=== PATIENT | female | born 1980 | race Caucasian/White ===

== ENCOUNTER 2018-02-19 12:44 | Emergency (ER) | payer SELFPAY ==
[~2018-02-19] VITALS: Ht 157.5 cm; Wt 67.6 kg
[~2018-02-19 12:44] MED LIST: [UNRECOGNIZED DRUG - CODE]
[2018-02-19 12:53] VITALS: BP 129/65
--- NOTE | 2018-02-19 13:00 | NUR ---
gave report to Ambar CARMICHAEL
--- NOTE | 2018-02-19 13:06 | NUR ---
37 yo f bib self w/ c/o vaginal bleeding x 3 days. Patient reports bleeding is spotting, "a large clot/mass came out" this am. Pt states she is 6 weeks , LMP 12/14/17, [id number]. Patient also reports of 5/10 mid lower back pain. a&o x 4. gcs15. cms intact. er md Grant notified of pt status. pt needs met. safety precautions in place. will continue to monitor.
--- NOTE | 2018-02-19 14:00 | NUR ---
pt resting comfortably in [facility] at this time. vss. will continue to monitor.
[2018-02-19 14:18] LABS: BASOPHILS % (AUTO) 0.4 % (0.0-2.0); EOSINOPHILS # (AUTO) 0.1 K/uL (0-0.4); HEMOGLOBIN 11.3 g/dL (12.0-16.0); LYMPHOCYTES # (AUTO) 2.1 K/uL (2.5-16.5); LYMPHOCYTES % (AUTO) 18.2 % (20.5-51.1); MEAN CORPUSCULAR HEMOGLOBIN 28 pg (27-31); MEAN CORPUSCULAR HGB CONC 32 g/dL (33-37); MEAN CORPUSCULAR VOLUME 86.3 fL (80-94); MONOCYTES # (AUTO) 0.7 K/uL (0.8-1.0); MONOCYTES % (AUTO) 6.3 % (1.7-9.3); NEUTROPHILS # (AUTO) 8.4 K/uL (1.8-7.7); NEUTROPHILS % (AUTO) 74.1 % (42.2-75.2); PLATELET COUNT (AUTO) 310 K/uL (140-450); RED BLOOD CELL COUNT(AUTO) 4.06 MIL/uL (4.20-5.40); RED CELL DISTRIBUTION WIDTH 14.2 % (11.6-13.7); WHITE BLOOD COUNT (AUTO) 11.3 K/uL (4.8-10.8)
[2018-02-19 14:27] LABS: APPEARANCE,URINE CLEAR (CLEAR); BILIRUBIN,URINE NEGATIVE (NEGATIVE); BLOOD, URINE 2+ (NEGATIVE); LEUKOCYTE ESTERASE ,URINE NEGATIVE (NEGATIVE); NITRITE, URINE NEGATIVE (NEGATIVE); PH,URINE 6.5 (5.0-9.0); UGLUCOSE NEGATIVE (NEGATIVE)
[2018-02-19 14:29] LABS: COLOR,URINE STRAW (YELLOW)
[2018-02-19 14:37] LABS: RBC,URINE 0-5 (RARE) /HPF (0-5); WBC,URINE 0-5 (RARE) /HPF (0-5)
--- NOTE | 2018-02-19 15:06 | NUR ---
PT RESTING COMFORTABLY AT THIS TIME. NEEDS MET. WILL CONTINUE TO MONITOR.
[2018-02-19 16:01] VITALS: BP 96/57
--- NOTE | 2018-02-19 16:01 | NUR ---
Patient discharged with v/s stable. Written and verbal after care instructions given and explained. Patient alert, oriented and verbalized understanding of instructions. Ambulatory with steady gait. All questions addressed prior to discharge. ID band removed. Patient advised to follow up with PMD. Opportunity to ask questions provided and answered.
== END 2018-02-19 16:01 | disposition home or self-care (01) ==
LOC: MED 12:44
DX: O46.91 Antepartum hemorrhage, unspecified, first trimester (principal); Z3A.01 Less than 8 weeks gestation of pregnancy; Z79.899 Other long term (current) drug therapy
CPT/HCPCS: 36415; 76817; 81001; 81025; 84702; 85025; 99285; Q0092

== ENCOUNTER 2019-01-12 20:04 | Emergency (ER) | payer MEDICAID ==
[~2019-01-12] VITALS: Ht 157.5 cm; Wt 65.8 kg
[2019-01-12 20:24] VITALS: BP 121/75
--- NOTE | 2019-01-12 20:25 | NUR ---
TO LOBBY A/W BED, AMBULATORY, VSS
--- NOTE | 2019-01-12 20:46 | NUR ---
38 YO F BIB SELF PRESENTS TO ER C/O "DIFFICULTY BREATHING" X 2 DAYS. PT STATES SHE HAS HX OF ASTHMA AND TOOK HER ALBUTEROL INHALER AT 1600 BUT IT DID NOT HELP. PT IS PINK, DRY, WARM. SP02: 99%. BREATHING IS EVEN, UNLABORED. NO INCREASED WOB NOTED. LUNGS CTA. C/O 10 CHEST AND BACK DISCOMFORT. PMH-- ASTHMA PT POSITIONED FOR COMFORT. HOB ELEVATED. SIDE RAIL UP X1. BED IN LOWEST POSITIONED. VSS. NO ACUTE DISTRESS AT THIS TIME.
[2019-01-12 21:36] VITALS: BP 121/75
--- NOTE | 2019-01-12 21:36 | NUR ---
Patient discharged with v/s stable. Written and verbal after care instructions given and explained. Patient alert, oriented and verbalized understanding of instructions. Ambulatory with steady gait. All questions addressed prior to discharge. ID band removed. Patient advised to follow up with PMD. Rx of ALBUTEROL, FLONASE given. Patient educated on indication of medication including possible reaction and side effects. Opportunity to ask questions provided and answered.
== END 2019-01-12 21:36 | disposition home or self-care (01) ==
LOC: MED 20:04
DX: J30.9 Allergic rhinitis, unspecified (principal); R03.0 Elevated blood-pressure reading, without diagnosis of hypertension; Z79.891 Long term (current) use of opiate analgesic
CPT/HCPCS: 87804; 99283

== ENCOUNTER 2019-01-26 15:17 | Emergency (ER) | payer MEDICAID ==
[~2019-01-26] VITALS: Ht 162.6 cm; Wt 64.4 kg
[2019-01-26 15:25] VITALS: BP 102/56
--- NOTE | 2019-01-26 16:05 | NUR ---
PT C/O BILATERAL LOWER ABD PAIN 5/10 RADIATES TO BACK X1 DAY AGO, REPORTS YELLOW DISCHARGE. DENIES N/V/D. . LMP 11/04/18 ALSO REPORTS FALL, FELL ON BUTTOCKS, DENIES LOC DENIES PMH NKA
[2019-01-26] MEDS ORDERED: ACETAMINOPHEN EXTRA STRENGTH 500 MG TAB PO ONE (17:00)
[2019-01-26 18:47] VITALS: BP 95/63
--- NOTE | 2019-01-26 18:47 | NUR ---
Patient discharged with v/s stable. Written and verbal after care instructions given and explained. Patient alert, oriented and verbalized understanding of instructions. Ambulatory with steady gait. All questions addressed prior to discharge. ID band removed. Patient advised to follow up with PMD. Rx of MACROBID AND ACETAMINOPHEN given. Patient educated on indication of medication including possible reaction and side effects. Opportunity to ask questions provided and answered.
== END 2019-01-26 18:47 | disposition home or self-care (01) ==
LOC: MED 15:17
DX: O9A.212 Injury, poisoning and certain other consequences of external causes complicating pregnancy, second trimester (principal); S30.0XXA Contusion of lower back and pelvis, initial encounter; O23.42 Unspecified infection of urinary tract in pregnancy, second trimester; J45.909 Unspecified asthma, uncomplicated; Z79.891 Long term (current) use of opiate analgesic; Z3A.16 16 weeks gestation of pregnancy; W19.XXXA Unspecified fall, initial encounter; Y93.89 Activity, other specified; Y92.89 Other specified places as the place of occurrence of the external cause; Y99.8 Other external cause status
CPT/HCPCS: 76815; 81002; 81025; 99284; Q0092

== ENCOUNTER 2019-04-03 17:47 | Observation (INO) | payer MEDICAID ==
[~2019-04-03] VITALS: Ht 157.5 cm; Wt 67.1 kg
[2019-04-03 17:51] VITALS: BP 111/72
--- NOTE | 2019-04-03 17:56 | NUR ---
spoke with Noemi CARMIHCAEL L&D
--- NOTE | 2019-04-03 18:00 | NUR ---
PT W/C ASSISTED TO L&D BY RONALD LYNCH.
[2019-04-03] MEDS ORDERED: TERBUTALINE 1 MG/ML VIAL SUBQ ONE ×2 (18:25→20:11)
[2019-04-03] MEDS ORDERED: BETAMETH ACET/BETAMETH NA PH 30 MG/5 ML VIAL IM ONE (18:38)
[2019-04-03] MEDS ORDERED: BETAMETH ACET/BETAMETH NA PH 30 MG/5 ML VIAL IM SCH (19:00)
[2019-04-03] MEDS ORDERED: MAG SULF 2000 MG/WATER PREMIX 100 ML IV SCH (19:00)
== END 2019-04-03 21:00 | disposition short-term general hospital (02) ==
LOC: MED 17:47 → MLD 18:11
PROVIDERS: ADMIT Obstetrics & Gynecology; ATTEND Obstetrics & Gynecology
DX: O62.9 Abnormality of forces of labor, unspecified (principal); O60.03 Preterm labor without delivery, third trimester; Z3A.28 28 weeks gestation of pregnancy
CPT/HCPCS: 96365; 99281; G0378; J0702; J3105; J3475

== ENCOUNTER 2019-10-10 10:40 | Emergency (ER) | payer MEDICAID ==
[~2019-10-10] VITALS: Ht 157.5 cm; Wt 66.2 kg
[2019-10-10 11:04] VITALS: BP 108/68
--- NOTE | 2019-10-10 11:04 | NUR ---
TO ED 07.
[2019-10-10] MEDS ORDERED: KETOROLAC 60 MG/2 ML VIAL IM ONE (11:30)
[2019-10-10] MEDS ORDERED: ACETAMINOPHEN 325 MG TAB PO ONE (11:55)
--- NOTE | 2019-10-10 12:00 | NUR ---
39 Y/O FEMALE BIB SELF C/O LOWER BACK PAIN THAT RADIATES TO RT LEG X 1 DAY. PT STATES PAIN WAS UNPROVOKED. NO DEFORMITIES/BRUISING NOTED. PT ABLE TO AMBULATE. +CMS. 8/10 ACHING SINCE THIS MORNING. RR EVEN AND UNLABORED. PT POSITIONED IN BED FOR COMFORT. BED LOCKED AND IN LOW POSITION. X 1 SIDE RAIL RAISED. VSS. MEDHX: ASTHMA ALLERGIES: NKA
--- NOTE | 2019-10-10 12:25 | NUR ---
PT STATES DECREASE IN PAIN, 5/10 ACHING AT THIS TIME
--- NOTE | 2019-10-10 12:26 | NUR ---
Patient discharged with v/s stable. Written and verbal after care instructions given and explained. Patient alert, oriented and verbalized understanding of instructions. Ambulatory with steady gait. All questions addressed prior to discharge. ID band removed. Patient advised to follow up with PMD. Rx of PLUS, NITROFURANTOIN, ACETAMINOPHEN given. Patient educated on indication of medication including possible reaction and side effects. Opportunity to ask questions provided and answered.
[2019-10-10 12:33] VITALS: BP 108/68
== END 2019-10-10 12:26 | disposition home or self-care (01) ==
LOC: MED 10:40
DX: M54.5 Low back pain (principal); N39.0 Urinary tract infection, site not specified
CPT/HCPCS: 81002; 81025; 87086; 99283